=== PATIENT | male | born 1975 | race Caucasian/White ===

== ENCOUNTER 2018-02-24 20:42 | Emergency (ER) | payer MEDICARE, MEDICAID ==
[2018-02-24] MEDS ORDERED: Sodium Chloride 0.9% 10 ML Syringe FLUSH PRN (21:02)
[2018-02-24] MEDS ORDERED: Sodium Chloride 0.9% 1,000 ML IV SCH (21:15)
--- NOTE | 2018-02-24 22:14 | EDM.PDOC ---
ED HPI GENERAL MEDICAL PROBLEM - General Chief Complaint: Chest Pain Stated Complaint: [facility] Time Seen by Provider: 02/24/18 20:46 Source of Information: Reports: Patient, EMS, Other (career technical education teacher) History Limitations: Reports: No Limitations - History of Present Illness INITIAL COMMENTS - FREE TEXT/NARRATIVE: The patient presents by [facility] for chest pain. The patient has Down's syndrome and he lives at an [place] apartment. He was found by staff on the floor of his bedroom. He was complaining of chest pain and right shoulder pain. 911 was called and he was transported here. It is hard to get a history from him. It sounds like he may have been lightheaded when he fell. He has no shortness of breath. He is diaphoretic. He has no abdominal pain, nausea, or vomiting. He was not moving his right shoulder but he says it does hurt when he moves it. He has no history of heart problems or MIs. Onset: Sudden Duration: Hour(s): Location: Reports: Chest Quality: Reports: Sharp Severity: Moderate Improves with: Reports: None Worsens with: Reports: None Associated Symptoms: Reports: Chest Pain. Denies: Cough, Fever/Chills, Headaches, Nausea/Vomiting, Shortness of Breath Middle Chest Pain Score (Numeric/FACES): 6 - Related Data Allergies Allergy/AdvReac Type Severity Reaction Status Date / Time cefprozil [From Cefzil] Allergy Other Verified 08/12/17 07:35 Cephalosporins Allergy Other Verified 08/12/17 07:35 Iodinated Contrast- Oral and Allergy Cannot Verified 02/24/18 20:48 IV Dye Remember Home Meds: Home Meds Levothyroxine [Synthroid] 88 mcg PO DAILY 02/24/18 [History] MV-Min/Vit C/Glut/Jenifer Ac/HC124 [Airborne Tablet Chewable] 4 - 6 oz PO ASDIRECTED 02/24/18 [History] Melatonin 5 mg PO BEDTIME 02/24/18 [History] PARoxetine [Paxil] 20 mg PO BEDTIME 02/24/18 [History] QUEtiapine [SEROquel] 12.5 mg PO BEDTIME 02/24/18 [History] guaiFENesin/Dextromethorphan [Tussin Dm Cough Syrup] 5 - 10 ml PO ASDIRECTED PRN 02/24/18 [History] Past Medical History HEENT History: Reports: Impaired Vision Other HEENT History: Wears glasses Psychiatric History: Reports: Depression Endocrine/Metabolic History: Reports: Hypothyroidism Social & Family History - Tobacco Use Smoking Status *Q: Never Smoker - Recreational Drug Use Recreational Drug Use: No ED ROS GENERAL - Review of Systems Review Of Systems: See Below Constitutional: Reports: No Symptoms HEENT: Reports: No Symptoms Respiratory: Reports: No Symptoms Cardiovascular: Reports: Chest Pain, Lightheadedness, Syncope (Possibly) Endocrine: Reports: No Symptoms GI/Abdominal: Reports: No Symptoms : Reports: No Symptoms ED EXAM, GENERAL - Physical Exam Exam: See Below Exam Limited By: No Limitations General Appearance: Alert, No Apparent Distress Ears: Normal External Exam Nose: Normal Inspection Head: Atraumatic, Normocephalic Neck: Normal Inspection, Supple, Non-Tender Respiratory/Chest: No Respiratory Distress, Lungs Clear, Normal Breath Sounds Cardiovascular: Regular Rate, Rhythm, No Edema, No Murmur GI/Abdominal: Soft, Non-Tender, No Organomegaly, No Mass Back Exam: Normal Inspection Extremities: Normal Inspection Neurological: Alert, Oriented, No Motor/Sensory Deficits EKG INTERPRETATION EKG Date: 02/24/18 Time: 21:09 Rhythm: NSR Rate (Beats/Min): 85 [place]: LAD-Left [place] Deviation P-Wave: Present QRS: Normal ST-T: Normal QT: Normal Course - Vital Signs Last Recorded V/S: Last Vital Signs Temp 98.9 F 02/24/18 20:48 Pulse 82 02/24/18 20:48 Resp 25 H 02/24/18 20:48 BP 137/78 02/24/18 20:48 Pulse Ox 92 L 02/24/18 20:48 - Orders/Labs/Meds Orders: Active Orders 24 hr Category Date Time Status Cardiac Monitoring [RC] . DIRECTED Care 02/24/18 21:02 Active EKG Documentation Completion [RC] ASDIRECTED Care 02/24/18 23:36 Active EKG Documentation Completion [RC] STAT Care 02/24/18 21:02 Active Peripheral IV Care [RC] . DIRECTED Care 02/24/18 21:03 Active Chest 1V Frontal [CR] Stat Exams 02/24/18 21:03 Taken Head wo Cont [CT] Stat Exams 02/24/18 21:02 Taken Venous Doppler Lwr Ext Bi [US] Stat Exams 02/24/18 22:13 Taken Sodium Chloride 0.9% [Normal Saline] 1,000 ml Med 02/24/18 21:15 Active IV ASDIRECTED Sodium Chloride 0.9% [Saline Flush] Med 02/24/18 21:02 Active 10 ml FLUSH ASDIRECTED PRN Peripheral IV Insertion Adult [OM.PC] Stat Oth 02/24/18 21:02 Ordered EKG 12 Lead [EK] Stat Ther 02/24/18 23:36 Ordered Medication Orders Sodium Chloride (Normal Saline) 1,000 mls @ 125 mls/hr IV ASDIRECTED CHLOE Last Admin: 02/24/18 21:09 Dose: 125 mls/hr Sodium Chloride (Saline Flush) 10 ml FLUSH ASDIRECTED PRN PRN Reason: Keep Vein Open Last Admin: 02/24/18 21:10 Dose: 10 ml Labs: Laboratory Tests 02/24/18 02/24/18 02/24/18 Range/Units 21:15 21:15 21:15 WBC 5.85 (4.23-9.07) K/mm3 RBC 4.99 (4.63-6.08) M/mm3 Hgb 16.0 (13.7-17.5) gm/L Hct 47.5 (40.1-51.0) % MCV 95.2 H (79.0-92.2) fl MCH 32.1 (25.7-32.2) pg MCHC 33.7 (32.2-35.5) g/dl RDW Std Deviation 48.2 H (35.1-43.9) fL Plt Count 280 (163-337) K/mm3 MPV 9.0 L (9.4-12.3) fl Neut % (Auto) 51.0 (34.0-67.9) % Lymph % (Auto) 31.3 (21.8-53.1) % [place] % (Auto) 13.7 H (5.3-12.2) % Eos % (Auto) 1.9 (0.8-7.0) Baso % (Auto) 1.9 H (0.1-1.2) % Neut # (Auto) 2.99 (1.78-5.38) K/mm3 Lymph # (Auto) 1.83 (1.32-3.57) K/mm3 [place] # (Auto) 0.80 (0.30-0.82) K/mm3 Eos # (Auto) 0.11 (0.04-0.54) K/mm3 Baso # (Auto) 0.11 H (0.01-0.08) K/mm3 D-Dimer, Quantitative 1.35 H (0.19-0.50) mg/L Sodium 143 (136-145) mEq/L Potassium 3.8 (3.5-5.1) mEq/L Chloride 106 (98-107) mEq/L Carbon Dioxide 27 (21-32) mEq/L Anion Gap 13.8 (5-15) BUN 17 (7-18) mg/dL Creatinine 1.0 (0.7-1.3) mg/dL Est Cr Clr Drug Dosing 75.87 mL/min Estimated GFR (MDRD) > 60 (>60) mL/min BUN/Creatinine Ratio 17.0 (14-18) Glucose 128 H (74-106) mg/dL Calcium 8.6 (8.5-10.1) mg/dL Total Bilirubin 0.3 (0.2-1.0) mg/dL AST 16 (15-37) U/L ALT 50 (16-63) U/L Alkaline Phosphatase 80 (46-116) U/L Troponin I 0.034 (0.00-0.056) ng/mL Total Protein 7.5 (6.4-8.2) g/dl Albumin 3.1 L (3.4-5.0) g/dl Globulin 4.4 gm/dL Albumin/Globulin Ratio 0.7 L (1-2) 02/24/18 02/25/18 02/25/18 Range/Units 23:50 04:07 04:07 WBC (4.23-9.07) K/mm3 RBC (4.63-6.08) M/mm3 Hgb (13.7-17.5) gm/L Hct (40.1-51.0) % MCV (79.0-92.2) fl MCH (25.7-32.2) pg MCHC (32.2-35.5) g/dl RDW Std Deviation (35.1-43.9) fL Plt Count (163-337) K/mm3 MPV (9.4-12.3) fl Neut % (Auto) (34.0-67.9) % Lymph % (Auto) (21.8-53.1) % [place] % (Auto) (5.3-12.2) % Eos % (Auto) (0.8-7.0) Baso % (Auto) (0.1-1.2) % Neut # (Auto) (1.78-5.38) K/mm3 Lymph # (Auto) (1.32-3.57) K/mm3 Tw[place]gs # (Auto) (0.30-0.82) K/mm3 Eos # (Auto) (0.04-0.54) K/mm3 Baso # (Auto) (0.01-0.08) K/mm3 D-Dimer, Quantitative 1.38 H (0.19-0.50) mg/L Sodium (136-145) mEq/L Potassium (3.5-5.1) mEq/L Chloride (98-107) mEq/L Carbon Dioxide (21-32) mEq/L Anion Gap (5-15) BUN (7-18) mg/dL Creatinine (0.7-1.3) mg/dL Est Cr Clr Drug Dosing mL/min Estimated GFR (MDRD) (>60) mL/min BUN/Creatinine Ratio (14-18) Glucose (74-106) mg/dL Calcium (8.5-10.1) mg/dL Total Bilirubin (0.2-1.0) mg/dL AST (15-37) U/L ALT (16-63) U/L Alkaline Phosphatase (46-116) U/L Troponin I 0.046 0.037 (0.00-0.056) ng/mL Total Protein (6.4-8.2) g/dl Albumin (3.4-5.0) g/dl Globulin gm/dL Albumin/Globulin Ratio (1-2) Meds: Medications Generic Name Dose Route Start Last Admin Trade Name Freq PRN Reason Stop Dose Admin Sodium Chloride 1,000 mls @ 125 mls/hr 02/24/18 21:15 02/24/18 21:09 Normal Saline IV 125 mls/hr ASDIRECTED CHLOE Administration Sodium Chloride 10 ml 02/24/18 21:02 02/24/18 21:10 Saline Flush FLUSH 10 ml ASDIRECTED PRN Administration Keep Vein Open Discontinued Medications Generic Name Dose Route Start Last Admin Trade Name Luke PRN Reason Stop Dose Admin Aspirin 324 mg 02/24/18 22:18 02/24/18 22:39 Aspirin PO 02/24/18 22:19 324 mg ONETIME ONE Administration - Re-Assessments/Exams Free Text/Narrative Re-Assessment/Exam: 02/24/18 23:08 I ordered an IV saline lock, EKG, CXR, labs, and a CT of his head. His CT looks good. His EKG shows LAD but nothing acute. His CXR looks good with no sign of shoulder fracture. His CBC looks good. His glucose was elevated at 128. His troponin was normal at 0.034 but slightly elevated in the normal range. I will repeat a troponin at the 3 hour mari. His D-dimer was elevated at 1.35. He is allergic to IV contrast. I will order an US of both of his legs. 02/25/18 01:04 His repeat EKG shows no acute changes. His repeat troponin is normal at 0.046. It is still in the normal range but it is trending up. I will need to keep him here longer as an observation and recheck his troponin. 02/25/18 04:59 His troponin is normal at 0.037 and trending back down. The D-dimer is still elevated about the same. His vitals do not support a PE and his US of his legs were negative. His oxygen saturations were normal and he was not tachycardic. I will discharge him home. Departure - Departure Time of Disposition: 05:00 Disposition: Home, Self-Care 01 Condition: Good Clinical Impression: Atypical chest pain Right shoulder strain Qualifiers: Encounter type: initial encounter Qualified Code(s): S46.911A - Strain of unspecified muscle, fascia and tendon at shoulder and upper arm level, right arm , initial encounter Referrals: PCP,None [Ordering Only Provider] - Forms: ED Department Discharge Additional Instructions: Take motrin or tylenol for pain. Ice your shoulder for 15 minutes 3 times per day. Drink plenty of fluids. Follow up with your doctor in 1 week. - My Orders Last 24 Hours: My Active Orders 02/24/18 21:02 Cardiac Monitoring [RC] . DIRECTED EKG Documentation Completion [RC] STAT Head wo Cont [CT] Stat Sodium Chloride 0.9% [Saline Flush] 10 ml FLUSH ASDIRECTED PRN Peripheral IV Insertion Adult [OM.PC] Stat 02/24/18 21:03 Peripheral IV Care [RC] . DIRECTED Chest 1V Frontal [CR] Stat 02/24/18 21:15 Sodium Chloride 0.9% [Normal Saline] 1,000 ml IV ASDIRECTED 02/24/18 22:13 Venous Doppler Lwr Ext Bi [US] Stat 02/24/18 23:36 EKG Documentation Completion [RC] ASDIRECTED EKG 12 Lead [EK] Stat - Assessment/Plan Last 24 Hours: My Active Orders 02/24/18 21:02 Cardiac Monitoring [RC] . DIRECTED EKG Documentation Completion [RC] STAT Head wo Cont [CT] Stat Sodium Chloride 0.9% [Saline Flush] 10 ml FLUSH ASDIRECTED PRN Peripheral IV Insertion Adult [OM.PC] Stat 02/24/18 21:03 Peripheral IV Care [RC] . DIRECTED Chest 1V Frontal [CR] Stat 02/24/18 21:15 Sodium Chloride 0.9% [Normal Saline] 1,000 ml IV ASDIRECTED 02/24/18 22:13 Venous Doppler Lwr Ext Bi [US] Stat 02/24/18 23:36 EKG Documentation Completion [RC] ASDIRECTED EKG 12 Lead [EK] Stat
[2018-02-24] MEDS ORDERED: Aspirin 81 MG Tab.Chew PO ONE (22:18)
--- NOTE | 2018-02-25 10:19 | CR ---
Chest: Frontal view of the chest was obtained. Comparison: No prior chest x-ray. Heart size and mediastinum are normal. Lungs are clear with no acute parenchymal change. Bony structures are grossly intact. Impression: 1. Nothing acute is on frontal chest x-ray. Diagnostic code #1
--- NOTE | 2018-02-25 10:19 | CT ---
Head CT Technique: Multiple axial sections through the brain were obtained. Intravenous contrast was not utilized. Comparison: Prior head CT exam of 10/23/14 and MRI brain of 01/04/18. Findings: Ventricles along the basal cisterns and sulci over the convexities appear within normal limits for the patient's age. Very minimal calcification is suggested near the head of the caudate nucleus on both sides. This finding is fairly similar to prior head CT exam but is not appreciated on the MRI. No other abnormal parenchymal densities are seen. No evidence of intracranial hemorrhage. No midline shift or mass effect is seen. Bone window settings were reviewed which show diffuse soft tissue opacification within the left middle ear cavity, external auditory canals and mastoid sinuses. Other visualized sinuses are clear. Impression: 1. Diffuse soft tissue density within the middle ear cavity, external auditory canal and mastoid sinus on the left side. Findings have worsened from previous exam. Findings may be infectious but cannot definitely exclude cholesteatoma causing obstruction and the mastoid sinus disease. 2. Minimal calcifications as noted above which are stable adjacent to the head of the caudate nucleus. 3. No acute intracranial abnormality is identified. Diagnostic code #3 I mostly gree with preliminary report from [facility], with additional note of left sided auditory findings as noted above, finalized at 02/24/18, 10:51 PM Central Time
--- NOTE | 2018-02-25 10:19 | US ---
Bilateral lower extremity deep venous ultrasound: Duplex and color flow imaging was obtained of the right and left common femoral, proximal greater saphenous, superficial femoral, popliteal, posterior tibial and peroneal veins. Findings: Normal phasic flow, augmentation and compression are seen. Impression: 1. No evidence of deep venous thrombosis within either the right or left lower extremity. Diagnostic code #1 I agree with preliminary report from [facility], finalized at 02/25/18, 12:28 AM Central Time
== END 2018-02-25 05:51 | disposition home or self-care (01) ==
LOC: JD.ED 20:42
DX: S46.911A Strain of unspecified muscle, fascia and tendon at shoulder and upper arm level, right arm, initial encounter (principal); R07.89 Other chest pain; E03.9 Hypothyroidism, unspecified; Z88.8 Allergy status to other drugs, medicaments and biological substances; Z91.041 Radiographic dye allergy status; Z79.899 Other long term (current) drug therapy; W19.XXXA Unspecified fall, initial encounter; R42 Dizziness and giddiness
CPT/HCPCS: 36415; 70450; 71045; 80053; 84484; 85025; 85379; 93005; 93970; 96360; 96361; 99285; A9270; J7040; J7050; 93010; 99284-25

== ENCOUNTER 2019-10-10 06:43 | Day surgery (SDC) | payer MEDICARE, MEDICAID ==
[~2019-10-10 06:43] MED LIST: Lactated Ringers 1,000 ML IV SCH; Lidocaine 1%/Sod Bicarbonate in NS 8.4% 1 ML Syringe IDERM PRN; Sodium Chloride 0.9% 10 ML Syringe FLUSH PRN
--- NOTE | 2019-10-10 07:42 | PCM.PREANE ---
Preanesthetic Assessment - Procedure Proposed Procedure: colonoscopy - Anesthesia/Transfusion/Family Hx Anesthesia History: Prior Anesthesia Without Reaction Family History of Anesthesia Reaction: No Intubation History: Unknown - Review of Systems General: No Symptoms Pulmonary: No Symptoms Cardiovascular: No Symptoms Gastrointestinal: No Symptoms Neurological: No Symptoms, Other (skin issues ) Other: Reports: Thyroid Problems, Depression - Physical Assessment NPO Status Date: 10/09/19 NPO Status Time: 23:55 Height: 1.6 m ASA Class: 3 Mental Status: Alert & Oriented x3 Airway Class: Mallampati = 2 Dentition: Reports: Missing Tooth/Teeth (missing multiple teeth and poor dentition ) Thyro-Mental Finger Breadths: 3 Mouth Opening Finger Breadths: 4 ROM/Head Extension: Limited/Partial Lungs: Normal Respiratory Effort, Decreased Breath Sounds Cardiovascular: Regular Rate, Regular Rhythm - Allergies Allergies/Adverse Reactions: Allergies Allergy/AdvReac Type Severity Reaction Status Date / Time cefprozil [From Cefzil] Allergy Other Verified 10/07/19 14:04 Cephalosporins Allergy Other Verified 10/07/19 14:04 Iodinated Contrast Media Allergy Cannot Verified 10/07/19 14:04 [Iodinated Contrast- Oral Remember and IV Dye] - Blood Blood Available: No - Anesthesia Plan Pre-Op Medication Ordered: None - Acknowledgements Anesthesia Type Planned: MAC Pt an Appropriate Candidate for the Planned Anesthesia: Yes Alternatives and Risks of Anesthesia Discussed w Pt/Guardian: Yes Pt/Guardian Understands and Agrees with Anesthesia Plan: Yes PreAnesthesia Questionnaire HEENT History: Reports: Hard of Hearing, Impaired Vision Other HEENT History: Wears glasses, left ear hearing loss Cardiovascular History: Reports: None Respiratory History: Reports: None Gastrointestinal History: Reports: None Genitourinary History: Reports: None TELECOM ASSISTANT History: Reports: None Neurological History: Reports: Alzheimers Disease Psychiatric History: Reports: Depression Other Psychiatric History: down syndrome Endocrine/Metabolic History: Reports: Hypothyroidism, Obesity/BMI 30+ Hematologic History: Reports: None Immunologic History: Reports: None Oncologic (Cancer) History: Reports: None Dermatologic History: Reports: None - Past Surgical History Head Surgeries/Procedures: Reports: None HEENT Surgical History: Reports: None Cardiovascular Surgical History: Reports: None Respiratory Surgical History: Reports: None GI Surgical History: Reports: Appendectomy, Other (See Below) Other GI Surgeries/Procedures: bilateral hernia repairs Female Surgical History: Reports: None Male Surgical History: Reports: None Endocrine Surgical History: Reports: None Neurological Surgical History: Reports: None Musculoskeletal Surgical History: Reports: Other (See Below) Other Musculoskeletal Surgeries/Procedures:: right ankle fracture with surgery Oncologic Surgical History: Reports: None - SUBSTANCE USE Smoking Status *Q: Never Smoker Recreational Drug Use History: No - HOME MEDS Home Medications: Home Meds Melatonin 5 mg PO BEDTIME 02/24/18 [History] Mv-Min/Vit C/Glut/Lysine/Hc124 [Airborne Tablet Chewable] 4 - 6 oz PO ASDIRECTED 02/24/18 [History] PARoxetine [Paxil] 20 mg PO BEDTIME 02/24/18 [History] guaiFENesin/Dextromethorphan [Tussin Dm Cough Syrup] 5 - 10 ml PO ASDIRECTED PRN 02/24/18 [History] Acetaminophen [Tylenol] 650 mg PO Q4H PRN 10/07/19 [History] Carbamide Peroxide [Debrox 6.5% Otic Soln] 1 dose EARBOTH ASDIRECTED PRN [History] Clotrimazole/Betamethasone Dip [Lotrisone Cream] 1 dose TOP DAILY 10/07/19 [ History] Levothyroxine [Synthroid] 50 mcg PO DAILY 10/07/19 [History] Mag Hydrox/Aluminum Hyd/Simeth [Mylanta Maximum Strength Liq] 10 mg PO TID PRN 10/07/19 [History] Menthol/Zinc Oxide [Gold Rosa Medicated Body Powdr] 1 dose TOP BID 10/07/19 [ History] Naproxen [Naprosyn] 500 mg PO Q12H PRN 10/07/19 [History] Nystatin 1 dose TOP BID 10/07/19 [History] OLANZapine [Olanzapine] 5 mg PO BID 10/07/19 [History] Omeprazole 20 mg PO QAM 10/07/19 [History] Tolnaftate [Tinactin] 1 dose TOP DAILY 10/07/19 [History] - CURRENT (IN HOUSE) MEDS Current Meds: Current Medications Lactated Ringer's (Ringers, Lactated) 1,000 mls @ 125 mls/hr IV ASDIRECTED CHLOE Stop: 10/10/19 23:00 Lidocaine/Sodium Bicarbonate (Buffered Lidocaine 1% In Ns 8.4%) 0.25 ml IDERM ONETIME PRN PRN Reason: Prior to IV Start Stop: 10/10/19 18:00 Sodium Chloride (Saline Flush) 10 ml FLUSH ASDIRECTED PRN PRN Reason: Keep Vein Open Stop: 10/10/19 18:00
[2019-10-10] MEDS ORDERED: Propofol 200 MG/20 ML SDV ONE ×2 (07:52→08:51)
[2019-10-10] MEDS ORDERED: Lidocaine 1% 4 ML ONE (07:52)
[2019-10-10] MEDS ORDERED: Midazolam 1 MG/ML 2 ML SDV ONE (07:54)
[2019-10-10] MEDS ORDERED: Ketamine 500 mg/10 ML MDV ONE (08:06)
--- NOTE | 2019-10-10 09:06 | PCM48HPAN ---
Post Anesthesia Note - EVALUATION WITHIN 48HRS OF ANESTHETIC Vital Signs in Normal Range: Yes Patient Participated in Evaluation: Yes Respiratory Function Stable: Yes Airway Patent: Yes Cardiovascular Function Stable: Yes Hydration Status Stable: Yes Pain Control Satisfactory: Yes Nausea and Vomiting Control Satisfactory: Yes Mental Status Recovered: Yes Vital Signs: 105/66 94 spo2, 73 hr, 16, 97.2 at 0859 Last Vital Signs Temp 36.8 C 10/10/19 07:12 Pulse 81 10/10/19 07:12 Resp 20 10/10/19 07:12 BP 117/76 10/10/19 07:12 Pulse Ox 91 L 10/10/19 07:12
--- NOTE | 2019-10-10 09:42 | PROC ---
DATE OF OPERATION: 10/10/2019 SURGEON: Babak Cano MD PREOPERATIVE DIAGNOSIS: Diarrhea. POSTOPERATIVE DIAGNOSES: 1. Normal colon. 2. Grade 2 hemorrhoids, internal. PROCEDURE: Colonoscopy with biopsies. COMPLICATIONS: None. ANESTHESIA: Monitored anesthesia care. INDICATIONS AND CONSENT: Mr. Montoya is a 44-year-old male who has Down syndrome. The patient was doing well at home until the last 3 or 4 months when he started having persistent diarrhea, changes in diet, did not help with the diarrhea, therefore, the patient presented to my clinic for evaluation. On my exam, I noted that the patient also had abdominal pain diffusely. Therefore CT scan was performed to try to see if there is anything intraabdominal causing the pain. CT was negative. I recommended we proceed with a colonoscopy to evaluate his colon. We discussed the risks, benefits, and alternatives to the procedure, and the prep required. The patient's caregiver understood and I explained everything to the patient. I also spoke with the patient's parents who are legal guardians about risks, benefits, and alternatives and they understood. All questions were answered and informed consent was signed. DESCRIPTION OF PROCEDURE: The patient was taken to the operating room, placed in left lateral decubitus position. Following induction of monitored anesthesia care, a time-out was performed. Then, the exam was started by doing a perianal exam. This was normal. Then, digital rectal exam was performed. There were some cushions in the rectal area consistent with the hemorrhoids. There was no stigmata of bleeding. There were no fissures. The endoscope was placed and advanced all the way to the cecum. The prep was adequate. There was still some brown liquid stool in the colon that was able to be irrigated and washed out. The cecum and appendiceal orifice were photographed and as well as ileocecal valve. Then, the scope was withdrawn into the ascending colon. At this point, we decided to do a mucosal biopsy for pathologic evaluation. There were no polyps. We withdrew the colonoscopy to the transverse colon and performed another mucosal biopsy and another one at the descending and sigmoid colon as well. There were no polyps. There was no diverticulum. On retroflexion in the rectum, we noted again grade 2 hemorrhoids without any stigmata of bleeding. At this point, air was suctioned out and the scope was withdrawn. The EBL was minimal and the patient tolerated the procedure well and was taken back to the PACU for recovery. The patient will follow up with his primary care doctor. We will call the patient's family with pathologic results and any additional follow up plans if indicated. I recommend a screening colonoscopy in 10 years. TREE /[id number] MTDD
== END 2019-10-10 09:58 | disposition home or self-care (01) ==
LOC: JD.SDS 06:43
PROVIDERS: ATTEND Surgery
DX: K64.1 Second degree hemorrhoids (principal); Q90.9 Down syndrome, unspecified; E03.9 Hypothyroidism, unspecified; H91.92 Unspecified hearing loss, left ear; E66.9 Obesity, unspecified; Z68.41 Body mass index [BMI] 40.0-44.9, adult; Z91.041 Radiographic dye allergy status; Z88.1 Allergy status to other antibiotic agents
CPT/HCPCS: 45380; J2001; J2250; J7120; J2704

== ENCOUNTER 2022-05-18 20:52 | Emergency (ER) | payer MEDICARE, MEDICAID ==
[2022-05-18] MEDS ORDERED: Ibuprofen 600 MG Tab PO ONE (21:53)
== END 2022-05-18 23:44 | disposition home or self-care (01) ==
LOC: JD.ED 20:52
DX: S49.92XA Unspecified injury of left shoulder and upper arm, initial encounter (principal); E03.9 Hypothyroidism, unspecified; E66.9 Obesity, unspecified; Z68.26 Body mass index [BMI] 26.0-26.9, adult; Z88.1 Allergy status to other antibiotic agents; Z91.041 Radiographic dye allergy status; Z79.899 Other long term (current) drug therapy; Z90.49 Acquired absence of other specified parts of digestive tract; X58.XXXA Exposure to other specified factors, initial encounter
CPT/HCPCS: 73030; 73060; 99283; A9270

== ENCOUNTER 2022-08-30 12:54 | Emergency (ER) | payer MEDICARE, MEDICAID ==
[2022-08-30] MEDS ORDERED: Sodium Chloride 0.9% 10 ML Syringe FLUSH PRN (15:24)
== END 2022-08-30 19:12 | disposition home or self-care (01) ==
LOC: JD.ED 12:54
DX: R07.89 Other chest pain (principal); I49.8 Other specified cardiac arrhythmias; E03.9 Hypothyroidism, unspecified; G30.9 Alzheimer's disease, unspecified; F02.80 Dementia in other diseases classified elsewhere, unspecified severity, without behavioral disturbance, psychotic disturbance, mood disturbance, and anxiety; E66.9 Obesity, unspecified; Z68.31 Body mass index [BMI] 31.0-31.9, adult; Z88.1 Allergy status to other antibiotic agents; Z91.041 Radiographic dye allergy status; Z79.899 Other long term (current) drug therapy
CPT/HCPCS: 36415; 71045; 71045-26; 80053; 83735; 83880; 84484; 85025; 85610; 85730; 93005; 99285

== ENCOUNTER 2023-01-02 10:43 | Emergency (ER) | payer MEDICARE, MEDICAID ==
[2023-01-02] MEDS ORDERED: Ibuprofen 600 MG Tab PO ONE (12:05)
== END 2023-01-02 12:36 | disposition home or self-care (01) ==
LOC: JD.ED 10:43
DX: M79.604 Pain in right leg (principal); E03.9 Hypothyroidism, unspecified; E66.9 Obesity, unspecified; Z68.32 Body mass index [BMI] 32.0-32.9, adult; Z91.041 Radiographic dye allergy status; Z88.8 Allergy status to other drugs, medicaments and biological substances; Z79.899 Other long term (current) drug therapy
CPT/HCPCS: 73502; 99283; A9270

== ENCOUNTER 2025-04-17 08:38 | Inpatient (IN) | payer MEDICARE, MEDICAID ==
[2025-04-17] MEDS: Ondansetron 4 MG/2 ML SDV IVPUSH ONE (08:58)
[2025-04-17] MEDS: Ketorolac 30 MG/ML SDV IVPUSH ONE (08:59)
[2025-04-17] MEDS: Sodium Chloride 0.9% 10 ML Syringe FLUSH PRN (08:59)
[2025-04-17 09:43] LABS: MEAN PLATELET VOLUME 9.0 fl (9.4-12.4); NRBC ABSOLUTE 0.00 (0.00-0.02); NRBC PERCENT 0.0 % (0.0-0.2); PLATELET COUNT,PLT 197 K/mm3 (150-400); RED BLOOD CELL COUNT 4.62 M/mm3 (4.52-5.90); WHITE BLOOD CELL COUNT,WBC 8.64 K/mm3 (3.9-11.3)
[2025-04-17 09:47] LABS: INR 1.06
[2025-04-17 09:59] LABS: A/G RATIO 0.9 (1-2); ALANINE AMINOTRANSFERASE,ALT 31.0 U/L (16-63); ASPARTATE AMNIOTRANSFERASE,AST 24.0 U/L (15-37); BILIRUBIN TOTAL 0.6 mg/dL (0.2-1.0); BLOOD UREA NITROGEN,BUN 22.0 mg/dL (7-18); CARBON DIOXIDE,CO2 31.0 mEq/L (21-32); CHLORIDE,CL 104.0 mEq/L (98-107); CREATININE 1.1 mg/dL (0.7-1.3); EST CRCL DRUG DOSING (CG) 63.94 mL/min; ESTIMATED GFR 81.0 mL/min (>60); GLUCOSE RANDOM 100.0 mg/dL (70-99); POTASSIUM,K 3.9 mEq/L (3.5-5.1); PROTEIN TOTAL,TP 6.9 g/dl (6.4-8.2); SODIUM,NA 143.0 mEq/L (136-145)
[2025-04-17 10:05] LABS: LACTIC ACID 2.2 mmol/L (0.4-2.0)
[2025-04-17 10:22] LABS: BAND PERCENT MAN 0 % (0-10); BASOPHILS PERCENT MAN 0 (0.2-1.2); EOSINOPHILS PERCENT MAN 0 % (0.8-7.0); LYMPHOCYTES % ATYPICAL MANUAL 0 %; LYMPHOCYTES PERCENT MAN 4 % (20-40); MONOCYTES PERCENT MAN 5 % (2-10)
[2025-04-17 10:24] LABS: PLATELET COUNT ESTIMATE ADEQUATE
[2025-04-17] MEDS ORDERED: Ondansetron 4 MG/2 ML SDV IV PRN (14:46)
[2025-04-17] MEDS: Lactated Ringers 1,000 ML IV SCH (14:58)
[2025-04-17] MEDS: methylPREDNISolone Sodium Succinate 125 MG/2 ML SDV IVPUSH ONE (15:22)
[2025-04-17] MEDS: diphenhydrAMINE 50 MG/ML SDV IVPUSH ONE (15:22)
[2025-04-17] MEDS: Iopamidol 755 Mg/ML 100 ML Bottle IVPUSH ONE (15:57)
[2025-04-17] MEDS: Cyanocobalamin (Vitamin B12) 1,000 MCG Tab PO SCH (16:30)
[2025-04-18 04:28] LABS: BASOPHILS ABSOLUTE AUTO 0.0 K/mm3 (0.0-0.2); BASOPHILS PERCENT AUTO 0.2 % (0.0-1.0); EOSINOPHILS ABSOLUTE AUTO 0.0 K/mm3 (0.0-0.4); EOSINOPHILS PERCENT AUTO 0.0 % (0.0-6.0); IMMATURE GRAN ABSOLUTE AUTO 0.10 K/mm3 (0.00-0.05); IMMATURE GRAN PERCENT AUTO 0.6 % (0.0-0.4); LYMPHOCYTES ABSOLUTE AUTO 1.0 K/mm3 (1.0-4.8); LYMPHOCYTES PERCENT AUTO 5.5 % (24.0-44.0); MEAN PLATELET VOLUME 9.2 fl (9.4-12.4); MONOCYTES ABSOLUTE AUTO 0.4 K/mm3 (0.0-0.8); MONOCYTES PERCENT AUTO 2.2 % (0.0-8.0); NEUTROPHILS ABSOLUTE AUTO 16.4 K/mm3 (1.8-7.7); NEUTROPHILS PERCENT AUTO 91.5 % (41.0-71.0); NRBC ABSOLUTE 0.00 (0.00-0.02); NRBC PERCENT 0.0 % (0.0-0.2); PLATELET COUNT,PLT 209 K/mm3 (150-400); RED BLOOD CELL COUNT 4.17 M/mm3 (4.52-5.90); WHITE BLOOD CELL COUNT,WBC 17.90 K/mm3 (3.9-11.3)
[2025-04-18 05:08] LABS: A/G RATIO 0.7 (1-2); ALANINE AMINOTRANSFERASE,ALT 24.0 U/L (16-63); ASPARTATE AMNIOTRANSFERASE,AST 17.0 U/L (15-37); BILIRUBIN TOTAL 0.7 mg/dL (0.2-1.0); BLOOD UREA NITROGEN,BUN 16.0 mg/dL (7-18); CARBON DIOXIDE,CO2 28.0 mEq/L (21-32); CHLORIDE,CL 104.0 mEq/L (98-107); CREATININE 1.0 mg/dL (0.7-1.3); EST CRCL DRUG DOSING (CG) 70.33 mL/min; ESTIMATED GFR 91.0 mL/min (>60); GLUCOSE RANDOM 155.0 mg/dL (70-99); PHOSPHORUS 2.3 mg/dL (2.6-4.7); POTASSIUM,K 3.6 mEq/L (3.5-5.1); PROTEIN TOTAL,TP 6.2 g/dl (6.4-8.2); SODIUM,NA 138.0 mEq/L (136-145); TSH 1.123 uIU/mL (0.358-3.74)
[2025-04-18] MEDS: Magnesium Sulfat/D5W 1GM/100ML 1 GM in Premix Bag 1 BAG IV ONE (10:11)
[2025-04-18] MEDS: Lactated Ringers 1,000 ML IV SCH (10:11)
[2025-04-18] MEDS: Potassium Chloride 20 MEQ Tab.ER PO ONE (10:12)
[2025-04-18] MEDS: Sennosides/Docusate Sodium 50-8.6 MG Tab PO PRN (16:58)
[2025-04-19 07:25] LABS: BASOPHILS ABSOLUTE AUTO 0.1 K/mm3 (0.0-0.2); BASOPHILS PERCENT AUTO 0.9 % (0.0-1.0); EOSINOPHILS ABSOLUTE AUTO 0.1 K/mm3 (0.0-0.4); EOSINOPHILS PERCENT AUTO 1.1 % (0.0-6.0); IMMATURE GRAN ABSOLUTE AUTO 0.04 K/mm3 (0.00-0.05); IMMATURE GRAN PERCENT AUTO 0.4 % (0.0-0.4); LYMPHOCYTES ABSOLUTE AUTO 1.9 K/mm3 (1.0-4.8); LYMPHOCYTES PERCENT AUTO 17.8 % (24.0-44.0); MEAN PLATELET VOLUME 9.1 fl (9.4-12.4); MONOCYTES ABSOLUTE AUTO 0.7 K/mm3 (0.0-0.8); MONOCYTES PERCENT AUTO 6.3 % (0.0-8.0); NEUTROPHILS ABSOLUTE AUTO 7.6 K/mm3 (1.8-7.7); NEUTROPHILS PERCENT AUTO 73.5 % (41.0-71.0); NRBC ABSOLUTE 0.00 (0.00-0.02); NRBC PERCENT 0.0 % (0.0-0.2); PLATELET COUNT,PLT 180 K/mm3 (150-400); RED BLOOD CELL COUNT 3.89 M/mm3 (4.52-5.90); WHITE BLOOD CELL COUNT,WBC 10.37 K/mm3 (3.9-11.3)
[2025-04-19 08:06] LABS: BLOOD UREA NITROGEN,BUN 14.0 mg/dL (7-18); CARBON DIOXIDE,CO2 28.0 mEq/L (21-32); CHLORIDE,CL 108.0 mEq/L (98-107); CREATININE 1.0 mg/dL (0.7-1.3); EST CRCL DRUG DOSING (CG) 70.33 mL/min; ESTIMATED GFR 91.0 mL/min (>60); GLUCOSE RANDOM 96.0 mg/dL (70-99); PHOSPHORUS 2.1 mg/dL (2.6-4.7); POTASSIUM,K 4.0 mEq/L (3.5-5.1); SODIUM,NA 144.0 mEq/L (136-145)
[2025-04-19] MEDS: Potassium Phosphates 30 MMOLE in Sodium Chloride 0.9% 500 ML IV SCH (09:20)
== END 2025-04-19 14:54 | DRG 871 ==
LOC: JD.ED 08:38 → JD.MS 10:49
PROVIDERS: ADMIT Student in an Organized Health Care Education/Training Program; ATTEND Student in an Organized Health Care Education/Training Program
DX: A41.89 Other specified sepsis (principal); J15.9 Unspecified bacterial pneumonia; J69.0 Pneumonitis due to inhalation of food and vomit; J96.01 Acute respiratory failure with hypoxia; Z91.041 Radiographic dye allergy status; E87.20 Acidosis, unspecified; Z79.890 Hormone replacement therapy; F02.83 Dementia in other diseases classified elsewhere, unspecified severity, with mood disturbance; R65.20 Severe sepsis without septic shock; H54.7 Unspecified visual loss; E83.39 Other disorders of phosphorus metabolism; I95.9 Hypotension, unspecified; K21.9 Gastro-esophageal reflux disease without esophagitis; E86.0 Dehydration; Q90.9 Down syndrome, unspecified; G30.9 Alzheimer's disease, unspecified; R62.50 Unspecified lack of expected normal physiological development in childhood; H91.92 Unspecified hearing loss, left ear; E66.9 Obesity, unspecified; E03.9 Hypothyroidism, unspecified; Z68.32 Body mass index [BMI] 32.0-32.9, adult; Z90.49 Acquired absence of other specified parts of digestive tract; Z98.890 Other specified postprocedural states; Z79.899 Other long term (current) drug therapy; Z88.8 Allergy status to other drugs, medicaments and biological substances; Z88.1 Allergy status to other antibiotic agents
CPT/HCPCS: 36415; 71045; 71045-26; 71275; 71275-26; 80048; 80053; 83605; 83735; 84100; 84443; 85007; 85025; 85027; 85610; 86140; 87040; 93005; 94760; 94761; 96365; 96375; 99223; 99232; 99239; 99285-25; A9270-GY; J1200; J1650; J1885; J2405; J2543; J2919; J3475; J3490; J7030; J7040; J7050; J7120; Q9967